=== PATIENT | female | born 1960 | race Caucasian/White ===

== ENCOUNTER → 2016-11-19 | Outpatient (CLI) | payer OTHER ==
[2014-04-26 12:55] VITALS: BP 136/83
[~2016-11-19] MED LIST: ACET325T9 PO; AMIT150T PO; ANAS1TAB3 PO; CRESTOR20 MG PO; CYCL10TA2 PO; DEXA4TAB PO; DIAZ5TAB PO; FLUO25PO MC; FLUO40CA9 PO; FURO-69 PO; GABA-586 PO; HYDR-2680 PO; HYDR25CA PO; LISI1TAB7 PO; METO50TA2 PO; NAPR500T3 PO; OMEP20CA5 PO; ONDA4TAB7 PO; PIRO20CA PO; TAMO20TA PO; TRAM50TA PO
--- NOTE | 2016-11-19 14:53 | KCIC ---
BONE DENSITOMETRY SCAN, 11/19/2016: History: Postmenopausal evaluation The lumbar spine and left hip were examined utilizing a DEXA technique. The bone mineral density in the lumbar spine as measured from the L1 through L4 levels is 0.93 grams per square centimeter. This yields a T-score of -1.1 compatible with osteoporosis. The findings have worsened since 11/15/2014 at which time the lumbar spine T-score was -0.6. The total T-score at the left hip is currently -1.6. On the previous study the left hip T-score was -1.3. IMPRESSION: Osteoporosis with interval worsening since 11/15/2014. Electronically signed by: Yordan Al MD (Nov 19, 2016 14:51:59)
== END | disposition home or self-care (01) ==
LOC: KCIC DEXA 11:09
PROVIDERS: ATTEND Internal Medicine Hematology & Oncology
DX: C50.919 Malignant neoplasm of unspecified site of unspecified female breast (principal); Z78.0 Asymptomatic menopausal state; Z82.62 Family history of osteoporosis
CPT/HCPCS: 77080

== ENCOUNTER → 2017-06-07 | Outpatient (CLI) | payer OTHER ==
[2014-04-26 12:55] VITALS: BP 136/83
[~2017-06-07] MED LIST changes: +ALEN70TA3 PO; -NAPR500T3 PO; +NAPR500T4 PO
--- NOTE | 2017-06-07 15:51 | RAD ---
Indication pain and swelling mid right humerus AP and lateral views of the right humerus were obtained. No bony abnormality is seen
--- NOTE | 2017-06-07 15:55 | RAD ---
Exam performed: Right upper extremity venous Doppler. Indication:RT ARM PAIN Date of Service: 06/07/2017 5:30 PM. Comparison:None available. Discussion: Multiple longitudinal and transverse high resolution real-time images of the venous system of the right upper extremity were obtained with color and Doppler sampling. The jugular, subclavian, axillary, brachial, cephalic, basilic, radial and ulnar veins are all patent and demonstrate normal flow and, where appropriate, compressibility. Left subclavian vein is patent. Impression: Normal color duplex ultrasound of the venous system of the right upper extremity.
== END | disposition home or self-care (01) ==
LOC: US 14:38
PROVIDERS: ATTEND Nurse Practitioner Adult Health
DX: M79.601 Pain in right arm (principal)
CPT/HCPCS: 73060; 93971

== ENCOUNTER → 2017-06-15 | Outpatient (CLI) | payer OTHER ==
[2014-04-26 12:55] VITALS: BP 136/83
[~2017-06-15] MED LIST changes: +GADOBUTROL 7.5 MMOL/7.5 ML VIAL IV ONE
--- NOTE | 2017-06-15 11:08 | RAD ---
MR of the right shoulder with and without contrast. Indication: Right shoulder pain with swelling over the last 2 months. Breast cancer. Technique: Standard multiplanar sequences are obtained before and after intravenous contrast. Findings: Acromioclavicular joint: Mildly degenerative. Rotator cuff: Tendinosis signal. No measurable supraspinatus or infraspinatus tendon tear. Partial subscapularis tendon tear. No significant subdeltoid bursal fluid. Glenohumeral cartilage: No acute defect or advanced DJD. Fluid: No significant joint effusion. Labrum: Tear of the superior labrum. Tear extends through the posterior labrum. Biceps tendon: Intact Bones: Small bone lesion at the upper aspect of the coracoid process, measures 7 mm diameter. No overtly aggressive bone destruction or acute macro fracture is identified. Soft tissue: Intramuscular edema within the supraspinatus, trapezius and posterior deltoid muscle. There is also extensive soft tissue edema and enhancement around the right shoulder greatest superiorly, and extending medially to the neck. No discrete soft tissue mass. Impression: 1. Rotator cuff tendinosis with a partial subscapularis tendon tear. 2. Superior and posterior labral tear. 3. Extensive soft tissue and intramuscular edema and enhancement in the visualized region. Findings are nonspecific, could be due to infectious, inflammatory or posttraumatic process. A discrete mass is not identified in the [id number]. This abnormality extends medially towards the neck, and is not fully visualized. Therefore, dedicated MR inclusive of the neck could be of benefit for further evaluation. 3. Small bone lesion at the base of the coracoid process of uncertain significance, but a small metastatic tumor deposit is possible. Consider whole body bone scan. Electronically signed by: Ej Ravi MD (06/15/2017 11:05 AM) [facility]
== END | disposition home or self-care (01) ==
LOC: MRI 08:29
PROVIDERS: ATTEND Internal Medicine Hematology & Oncology
DX: S46.011A Strain of muscle(s) and tendon(s) of the rotator cuff of right shoulder, initial encounter (principal); C50.919 Malignant neoplasm of unspecified site of unspecified female breast; X58.XXXA Exposure to other specified factors, initial encounter; Y93.89 Activity, other specified; Y92.89 Other specified places as the place of occurrence of the external cause; Y99.8 Other external cause status
CPT/HCPCS: 73223; A9585

== ENCOUNTER → 2017-07-08 | Outpatient (CLI) | payer OTHER ==
[2014-04-26 12:55] VITALS: BP 136/83
[~2017-07-08] MED LIST changes: +ATORVASTATIN CA80 MG PO; +BUPR150T8 PO; +CITA40TA5 PO; +LISI10TA2 PO; +OXYC-323 PO; +OXYC-328 PO; +ZOLP5TAB5 PO
--- NOTE | 2017-07-08 10:35 | RAD ---
EXAM: Brain MRI with and without contrast. HISTORY: Breast cancer and lung cancer. TECHNIQUE: Multiplanar, multisequence magnetic resonance imaging of the brain was performed prior to and following the administration of 7 cc Gadavist intravenous contrast. COMPARISON: 12/06/2014. FINDINGS: There is no restricted diffusion to suggest acute or subacute infarction. There is no susceptibility effect to suggest hemorrhage. There is no mass effect or midline shift. There is no hydrocephalus. No suspicious enhancing lesion is seen. There are few tiny foci of T2/FLAIR hyperintensity within the cerebral white matter, a nonspecific finding. The orbits, paranasal sinuses and mastoid air cells are unremarkable. There are normal flow voids within the cerebral vessels. IMPRESSION: 1. No acute intracranial finding or evidence of intracranial metastatic disease. 2. Few tiny foci of signal change within the cerebral white matter, a nonspecific finding most commonly due to chronic small vessel disease. Electronically signed by: Lexus Mooney MD (07/08/2017 10:31 AM) [id number]
== END | disposition home or self-care (01) ==
LOC: MRI 08:04
PROVIDERS: ATTEND Internal Medicine Hematology & Oncology
DX: C50.919 Malignant neoplasm of unspecified site of unspecified female breast (principal); C34.90 Malignant neoplasm of unspecified part of unspecified bronchus or lung; I73.89 Other specified peripheral vascular diseases
CPT/HCPCS: 70553; A9585

== ENCOUNTER → 2017-07-18 | Outpatient (CLI) | payer OTHER ==
[2014-04-26 12:55] VITALS: BP 136/83
[~2017-07-18] MED LIST changes: -GADOBUTROL 7.5 MMOL/7.5 ML VIAL IV ONE
--- NOTE | 2017-07-18 10:04 | CARD ---
APPROVED REPORT EXAM: Two-dimensional and M-mode echocardiogram with Doppler and color Doppler. Other Information Quality : Average Rhythm : NSR INDICATION LV Function:Systolic Reocurrent breast cancer 2D DIMENSIONS RVDd2.5 (2.9-3.5cm)Left Atrium(2D)2.3 (1.6-4.0cm) IVSd0.6 (0.7-1.1cm)Aortic Root(2D)2.5 (2.0-3.7cm) LVDd4.9 (3.9-5.9cm)LVOT Diameter1.9 (1.8-2.4cm) PWd0.5 (0.7-1.1cm)LVDs3.4 (2.5-4.0cm) FS (%) 30.9 %SV64.6 ml LVEF(%)58.4 (>50%) Aortic Valve AoV Peak Ayden.119.3cm/sAoV VTI20.3cm AO Peak GR.5.7mmHgLVOT Peak Ayden.119.7cm/s LVOT VTI 18.76cmAO Mean GR.4mmHg LIGIA (VMAX)2.51oh4OHD (VTI)2.53cm2 Mitral Valve MV E Outvotcl33.2cm/sMV DECEL [id number] MV A Ppamqzrh49.3cm/sMV E Mean Gr.2mmHg MV JUX43vgG/A Ratio0.9 MV A Zsjvsovb57ffOAL (PHT)3.16cm2 TDI E/Lateral E'5.2E/Medial E'7.3 Pulmonary Valve PV Peak Fjditjef681.9cm/sPV Peak Grad.6mmHg RVOT VTI18.1cm Tricuspid Valve TR P. Vgrfmovk231fi/sRAP DZTEGKXV3iyGz TR Peak Gr.50fdUmWGSE35hhGn LEFT VENTRICLE The left ventricle is normal size. There is normal left ventricular wall thickness. Left ventricle sy stolic function is normal. The Ejection Fraction is 55-60%. GLS Avg -18.17% There is normal LV segmen thi wall motion. The left ventricular diastolic function and filling is normal for age. There is no v entricular septal defect visualized. RIGHT VENTRICLE The right ventricle is normal size. The right ventricular systolic function is normal. ATRIA The left atrium size is normal. The right atrium size is normal. The interatrial septum is intact wit h no evidence for an atrial septal defect or patent foramen ovale as noted on 2-D or Doppler imaging. AORTIC VALVE The aortic valve is normal in structure and function. The aortic valve is trileaflet. Doppler and Col or Flow revealed no significant aortic regurgitation. There is no significant aortic valvular stenosi s. MITRAL VALVE The mitral valve leaflets are thickened. There is no mitral valve stenosis. Doppler and Color Flow re vealed no mitral valve regurgitation noted. TRICUSPID VALVE The tricuspid valve is normal in structure and function. Doppler and Color Flow revealed trace tricus pid regurgitation. The PA pressure was estimated at 24 mmHg. There is no tricuspid valve stenosis. PULMONIC VALVE The pulmonic valve is not well visualized. Doppler and Color Flow revealed no pulmonic valvular regur gitation. There is no pulmonic valvular stenosis. GREAT VESSELS The aortic root is normal in size. Pulmonary veins not well visualized. The IVC is normal in size and collapses >50% with inspiration. PERICARDIAL EFFUSION There is no evidence of significant pericardial effusion. Critical Notification Critical Value: No <Conclusion> Left ventricle systolic function is normal. The Ejection Fraction is 55-60%. Doppler and Color Flow revealed trace tricuspid regurgitation. The PA pressure was estimated at 24 mmHg. There is no evidence of significant pericardial effusion.
== END | disposition home or self-care (01) ==
LOC: ECHO 08:01
PROVIDERS: ATTEND Internal Medicine Hematology & Oncology
DX: C50.911 Malignant neoplasm of unspecified site of right female breast (principal); Z17.0 Estrogen receptor positive status [ER+]
CPT/HCPCS: 93306

== ENCOUNTER → 2017-07-25 | Outpatient (CLI) | payer OTHER ==
[2014-04-26 12:55] VITALS: BP 136/83
[~2017-07-25] MED LIST changes: +CEPH-264 PO; +DEXAMETHASONE SOD PHOS 20 MG/5 ML VIAL. ONE; +GABA300C8 PO; +GEMC200V IV; +HYDR-971 PO; +HYDR12.53 PO; +IOHEXOL 240 MG/ML 50ML VIAL. PO ONE; +IOHEXOL 300 MG/ML 100ML VIAL. IV ONE; +LIDO30CR TP; +LIDOCAINE 2% PF Vial for OR 5 ML VIAL. ONE; +LISI-375 PO; -METO50TA2 PO; +METO50TA6 PO; +MIDAZOLAM HCL/PF 2 MG/2 ML VIAL. ONE; +ONDANSETRON PF 4 MG/2 ML VIAL. ONE; +PROM12.553 RC; +PROPOFOL 20 ML IV ONE; +SEVOFLURANE 31 TO 60 MINUTES. IH ONE; +TRAS150V IV; +fentaNYL PF VIAL 100 MCG/2 ML VIAL ONE
--- NOTE | 2017-07-25 15:52 | RAD ---
CT abdomen and pelvis with contrast Indication: History of breast cancer. Technique: CT abdomen and pelvis with 60 mL of Omnipaque 300 and 50 mL of Omnipaque 240 by mouth contrast Comparison: Previous abdominal study from [address] chest from 06/27/2017 Findings: Heart is normal in size. No pericardial or pleural effusion. Numerous pulmonary nodules are seen in the lungs compatible with metastatic disease. Index lesions as follows: The dominant lesion in the right lower lobe measures 2.1 x 2.4 cm, previously 1.9 x 2.3 cm. The dominant lesion within left lower lobe measures 1.9 x 1.4 cm, previously 1.8 x 1.4 cm. Interval increase in the size of right infrahilar soft tissue mass measuring 2.8 x 2.9 cm, previously 2.1 x 2.9 cm. Interval increase in the size of lingular nodule measuring 2.8 x 1.8 cm, previously 2.5 x 1.6 cm. Liver is normal in morphology without focal hepatic lesion. Spleen within normal limits. No radiopaque gallstones. No pericholecystic fluid or gallbladder wall thickening. Pancreas is within normal limits. No adrenal masses. Interval decrease in the size of previously seen left renal cyst. No suspicious renal lesion or hydronephrosis. No retroperitoneal or pelvic adenopathy. No bowel obstruction. Normal bowel thickening or enhancement. Uterus is anteverted. 2.2 x 3.4 cm well-circumscribed soft tissue mass is seen in the right adnexa adjacent to the uterus, previously measuring 2.9 x 2.3 cm from study from 12/07/2013 most likely pedunculated fibroid. Bilateral ovaries are visualized and are within normal limits. No free pelvic fluid. Bladder within normal limits. No abdominal adenopathy. No suspicious bony lesion. Impression: 1. Interval increase in the size of lung bases nodules when compared to previous CT from 05/3017. 2. No metastatic disease in the abdomen or pelvis. PQRS Compliance Statement: One or more of the following individualized dose reduction techniques were utilized for this examination: 1. Automated exposure control 2. Adjustment of the mA and/or kV according to patient size 3. Use of iterative reconstruction technique
== END | disposition home or self-care (01) ==
LOC: CT 13:41
PROVIDERS: ATTEND Internal Medicine Hematology & Oncology
DX: C50.919 Malignant neoplasm of unspecified site of unspecified female breast (principal)
CPT/HCPCS: 74177; Q9966; Q9967; J1100; J2250; J2405; J2704; J3010; J2001

== ENCOUNTER 2017-07-26 10:27 | Day surgery (SDC) | payer OTHER ==
[~2017-07-26 10:27] MED LIST changes: -ACET325T9 PO; -ALEN70TA3 PO; -AMIT150T PO; -ANAS1TAB3 PO; -ATORVASTATIN CA80 MG PO; -BUPR150T8 PO; -CEPH-264 PO; -CITA40TA5 PO; -CRESTOR20 MG PO; -CYCL10TA2 PO; -DEXA4TAB PO; -DEXAMETHASONE SOD PHOS 20 MG/5 ML VIAL. ONE; -DIAZ5TAB PO; -FLUO25PO MC; -FLUO40CA9 PO; -FURO-69 PO; -GABA-586 PO; -GABA300C8 PO; -GEMC200V IV; -HYDR-2680 PO; -HYDR-971 PO; -HYDR12.53 PO; -HYDR25CA PO; +HYDROmorphone 2 MG/ML VIAL IV; -IOHEXOL 240 MG/ML 50ML VIAL. PO ONE; -IOHEXOL 300 MG/ML 100ML VIAL. IV ONE; -LIDO30CR TP; +LIDOCAINE 1% PF 2 ML VIAL. ID; -LIDOCAINE 2% PF Vial for OR 5 ML VIAL. ONE; -LISI-375 PO; -LISI10TA2 PO; -LISI1TAB7 PO; -METO50TA6 PO; -MIDAZOLAM HCL/PF 2 MG/2 ML VIAL. ONE; +MORPHINE SULFATE 2 MG/ML DISP.SYRIN. IV; -NAPR500T4 PO; -OMEP20CA5 PO; -ONDA4TAB7 PO; +ONDANSETRON PF 4 MG/2 ML VIAL. IV; -ONDANSETRON PF 4 MG/2 ML VIAL. ONE; -OXYC-323 PO; -OXYC-328 PO; -PIRO20CA PO; +PROCHLORPERAZINE 10 MG/2 ML VIAL. IV; -PROM12.553 RC; -PROPOFOL 20 ML IV ONE; -SEVOFLURANE 31 TO 60 MINUTES. IH ONE; -TAMO20TA PO; -TRAM50TA PO; -TRAS150V IV; -ZOLP5TAB5 PO; +fentaNYL PF VIAL 100 MCG/2 ML VIAL IV; -fentaNYL PF VIAL 100 MCG/2 ML VIAL ONE
[2017-07-26] MEDS: IV RINGERS,LACTATED 1000ML 1,000 ML IV (11:14)
[2017-07-26] MEDS: HEPARIN SODIUM 5,000 UNIT in IV NORMAL SALINE 500ML BAG 500 ML IRR (12:35)
[2017-07-26] MEDS: LIDOCAINE 1% 20 ML VIAL. (12:35)
[2017-07-26] MEDS: HYDROcodone/APAP 5/325MG 1 TAB TABLET PO (13:53)
== END 2017-07-26 14:29 | disposition home or self-care (01) ==
LOC: SURG 10:27
DX: C50.919 Malignant neoplasm of unspecified site of unspecified female breast (principal); E78.00 Pure hypercholesterolemia, unspecified; I10 Essential (primary) hypertension; M19.90 Unspecified osteoarthritis, unspecified site; F32.9 Major depressive disorder, single episode, unspecified; F41.9 Anxiety disorder, unspecified; F17.200 Nicotine dependence, unspecified, uncomplicated; Z85.3 Personal history of malignant neoplasm of breast; Z90.10 Acquired absence of unspecified breast and nipple
CPT/HCPCS: 36556; 36561; 71010; 77001; C1788; J0690; J1644; J7040

== ENCOUNTER → 2017-08-02 | Outpatient (CLI) | payer OTHER ==
[2017-07-26 13:55] VITALS: BP 117/70
[~2017-08-02] MED LIST changes: +ACET325T9 PO; +ALEN70TA3 PO; +AMIT150T PO; +ANAS1TAB3 PO; +ATORVASTATIN CA80 MG PO; +BUPR150T8 PO; +CEPH-264 PO; +CITA40TA5 PO; +CRESTOR20 MG PO; +CYCL10TA2 PO; +DEXA4TAB PO; +DIAZ5TAB PO; +FLUO25PO MC; +FLUO40CA9 PO; +FURO-69 PO; +GABA-586 PO; +GEMC200V IV; +HYDR-2680 PO; +HYDR-971 PO; +HYDR12.53 PO; +HYDR25CA PO; -HYDROmorphone 2 MG/ML VIAL IV; +LIDO30CR TP; -LIDOCAINE 1% PF 2 ML VIAL. ID; +LISI-375 PO; +LISI10TA2 PO; +LISI1TAB7 PO; +METO50TA6 PO; -MORPHINE SULFATE 2 MG/ML DISP.SYRIN. IV; +NAPR500T4 PO; +OMEP20CA5 PO; +ONDA4TAB7 PO; -ONDANSETRON PF 4 MG/2 ML VIAL. IV; +OXYC-323 PO; +OXYC-328 PO; +PIRO20CA PO; -PROCHLORPERAZINE 10 MG/2 ML VIAL. IV; +PROM12.553 RC; +TAMO20TA PO; +TRAM50TA PO; +TRAS150V IV; +ZOLP5TAB5 PO; -fentaNYL PF VIAL 100 MCG/2 ML VIAL IV
--- NOTE | 2017-08-02 12:02 | RAD ---
Indication: Axillary swelling. Time of exam 11:49 AM Comparison is made with prior chest from 07/18/2017. Left IJ Port-A-Cath remains in place with tip overlying the SVC. Numerous parenchymal nodules are identified bilaterally consistent with pulmonary metastatic disease. These may be slightly increased in size. No effusion is seen. There is no pneumothorax. The heart size is stable. Impression: Pulmonary metastatic disease, similar to slightly increased when compared exam from 07/26/2017.
--- NOTE | 2017-08-02 12:03 | RAD ---
Indication: Right arm swelling. Grayscale, color-flow and duplex Doppler evaluation of the right upper extremity deep venous system was performed. The right internal jugular vein as well as the right subclavian and axillary veins are patent. The brachial vein is patent. The basilic, cephalic, radial and ulnar veins are patent. No thrombus is seen. No fluid collection is identified. Impression: No evidence of right upper extremity DVT.
== END | disposition home or self-care (01) ==
LOC: US 11:24
PROVIDERS: ATTEND Internal Medicine Hematology & Oncology
DX: C78.00 Secondary malignant neoplasm of unspecified lung (principal); M79.89 Other specified soft tissue disorders
CPT/HCPCS: 71020; 93971

== ENCOUNTER → 2017-10-20 | Outpatient (CLI) | payer OTHER | END | disposition home or self-care (01) | LOC: ECHO 08:31 | DX: C50.911 Malignant neoplasm of unspecified site of right female breast (principal); Z17.0 Estrogen receptor positive status [ER+] | CPT/HCPCS: 93308 ==

== ENCOUNTER → 2017-11-15 | Outpatient (CLI) | payer OTHER ==
[2017-11-15] MEDS: IOHEXOL 240 MG/ML 50ML VIAL. PO ×2 (09:15→10:43)
[2017-11-15] MEDS: IOHEXOL 300 MG/ML 100ML VIAL. IV ×2 (09:30→10:42)
[2017-11-15] MEDS: HEPARIN PF 500 UNIT/5 ML DISP.SYRIN. IV (10:44)
== END | disposition home or self-care (01) ==
LOC: CT 09:05
DX: C50.911 Malignant neoplasm of unspecified site of right female breast (principal); J18.1 Lobar pneumonia, unspecified organism; J90 Pleural effusion, not elsewhere classified; Z17.0 Estrogen receptor positive status [ER+]
CPT/HCPCS: 71260; 74177; Q9966; Q9967

== ENCOUNTER 2017-11-30 12:24 | Inpatient (IN) | payer OTHER ==
[2017-11-30] MEDS ORDERED: 0.9 % SODIUM CHLORIDE 10 ML DISP.SYRIN. IV (13:00)
[2017-11-30] MEDS ORDERED: ONDANSETRON PF 4 MG/2 ML VIAL. IV (13:15)
[2017-11-30] MEDS ORDERED: MORPHINE SULFATE 4 MG/ML DISP.SYRIN. IV (13:15)
[2017-11-30 13:35] LABS: BASO % 1 % (0-3); EOS # 0.1 x10^3/uL (0.0-0.7); EOS % 1 % (0-3); HEMATOCRIT 25.5 % (36.0-47.0); HEMOGLOBIN 8.3 g/dL (12.0-15.5); LYMPH # 0.5 x10^3/uL (1.0-4.8); LYMPH % 6 % (24-48); MEAN CORPUSCULAR HEMOGLOBIN 29 pg (25-35); MEAN CORPUSCULAR HGB CONC 33 g/dL (31-37); MEAN CORPUSCULAR VOLUME 90 fL (79-100); MONO # 0.1 x10^3/uL (0.0-1.1); MONO % 1 % (0-9); NEUT # 7.3 x10^3uL (1.8-7.7); NEUT % 92 % (31-73); PLATELET COUNT 312 x10^3/uL (140-400); RED BLOOD COUNT 2.84 x10^6/uL (3.50-5.40); RED CELL DISTRIBUTION WIDTH 19.2 % (11.5-14.5); WHITE BLOOD COUNT 7.9 x10^3/uL (4.0-11.0)
[2017-11-30 13:37] LABS: ADD MAN DIFF? YES
[2017-11-30] MEDS: PIPERACILLIN/TAZOBACTAM 4.5 GM in IV NORMAL SALINE 100ML 100 ML IV (13:38)
[2017-11-30] MEDS: MORPHINE SULFATE 4 MG/ML DISP.SYRIN. IV (13:38)
[2017-11-30] MEDS: IV NORMAL SALINE 1000ML BAG 1,000 ML IV ×3 (13:39→21:51)
[2017-11-30 13:49] LABS: ANION GAP 13 (6-14); BLOOD UREA NITROGEN 56 mg/dL (7-20); CALCIUM 8.7 mg/dL (8.5-10.1); CARBON DIOXIDE 22 mmol/L (21-32); CHLORIDE 99 mmol/L (98-107); CREATININE 2.1 mg/dL (0.6-1.0); GFR 24.2; GLUCOSE 119 mg/dL (70-99); POTASSIUM 3.8 mmol/L (3.5-5.1); SODIUM 134 mmol/L (136-145)
[2017-11-30 13:55] LABS: ALBUMIN 2.6 g/dL (3.4-5.0); ALK PHOS 118 U/L (46-116); ALT (SGPT) 20 U/L (14-59); AST (SGOT) 25 U/L (15-37); DIRECT BILIRUBIN 0.1 mg/dL (0.0-0.2); LIPASE 120 U/L (73-393); MAGNESIUM 1.8 mg/dL (1.8-2.4); TOTAL BILIRUBIN 0.3 mg/dL (0.2-1.0); TOTAL PROTEIN 7.2 g/dL (6.4-8.2)
[2017-11-30 13:57] LABS: TROPONINI < 0.017 ng/mL (0.000-0.055)
[2017-11-30 14:05] LABS: NT-PRO BNP 1195 pg/mL (0-124)
[2017-11-30 14:05] LABS: CKMB MASS < 0.5 ng/mL (0.0-3.6); CREATINE KINASE 42 U/L (26-192)
[2017-11-30 14:09] LABS: LACTIC ACID 1.2 mmol/L (0.4-2.0)
[2017-11-30] MEDS ORDERED: LIDOCAINE/PRILOCAINE TOPICAL CREAM 5GM TUBE. TP (16:15)
[2017-11-30] MEDS ORDERED: ZOLPIDEM 5 MG TABLET. PO (16:15)
[2017-11-30] MEDS ORDERED: CYCLOBENZAPRINE 10 MG TABLET. PO (16:15)
[2017-11-30 16:43] LABS: % LYMPHS 6 % (24-48); % MONOS 1 % (0-10); % SEGS 93 % (35-66)
[2017-11-30 16:44] LABS: PLT ESTIMATE ADEQUATE (ADEQUATE)
[2017-11-30] MEDS: GABAPENTIN 300 MG CAPSULE. PO (20:41)
[2017-11-30] MEDS: AMITRIPTYLINE HCL 50 MG TABLET PO (20:41)
[2017-11-30] MEDS: hydrOXYzine PAMOATE 25 MG CAPSULE PO (20:41)
[2017-11-30] MEDS: ATORVASTATIN CALCIUM 40 MG TABLET. PO (20:41)
[2017-11-30] MEDS: HYDROcodone/APAP 5/325MG 1 TAB TABLET PO (20:43)
[2017-12-01] MEDS: IV NORMAL SALINE 1000ML BAG 1,000 ML IV ×2 (05:19→14:03)
[2017-12-01 06:50] LABS: BILIRUBIN,URINE NEGATIVE (NEG); CLARITY,URINE CLEAR; COLOR,URINE YELLOW; GLUCOSE,URINE NEGATIVE (NEG); NITRITE,URINE NEGATIVE (NEG); PH,URINE 5.5; PROTEIN,URINE NEGATIVE (NEG-TRACE); UROBILINOGEN,URINE 0.2 mg/dL (0.2 mg/dL)
[2017-12-01 07:01] LABS: BACTERIA,URINE FEW /HPF (0-FEW); SQUAMOUS EPITHELIAL CELL,UR FEW /LPF
[2017-12-01] MEDS: PANTOPRAZOLE 40 MG TABLET.DR. PO (07:48)
[2017-12-01 09:13] LABS: ADD MAN DIFF? NO
[2017-12-01] MEDS: GABAPENTIN 300 MG CAPSULE. PO ×3 (09:13→21:00)
[2017-12-01] MEDS: LISINOPRIL 10 MG TABLET PO (09:13)
[2017-12-01] MEDS: CITALOPRAM 20 MG TABLET. PO (09:13)
[2017-12-01] MEDS: buPROPion SR 150 MG TABLET.SA PO (09:13)
[2017-12-01] MEDS: hydrOXYzine PAMOATE 25 MG CAPSULE PO ×3 (09:13→21:01)
[2017-12-01 09:21] LABS: BASO % 0 % (0-3); EOS # 0.2 x10^3/uL (0.0-0.7); EOS % 4 % (0-3); HEMATOCRIT 22.4 % (36.0-47.0); HEMOGLOBIN 7.1 g/dL (12.0-15.5); LYMPH # 0.5 x10^3/uL (1.0-4.8); LYMPH % 12 % (24-48); MEAN CORPUSCULAR HEMOGLOBIN 29 pg (25-35); MEAN CORPUSCULAR HGB CONC 32 g/dL (31-37); MEAN CORPUSCULAR VOLUME 90 fL (79-100); MONO # 0.2 x10^3/uL (0.0-1.1); MONO % 4 % (0-9); NEUT # 3.2 x10^3uL (1.8-7.7); NEUT % 80 % (31-73); PLATELET COUNT 252 x10^3/uL (140-400); RED BLOOD COUNT 2.49 x10^6/uL (3.50-5.40); RED CELL DISTRIBUTION WIDTH 18.5 % (11.5-14.5)
[2017-12-01 09:50] LABS: ALBUMIN 2.2 g/dL (3.4-5.0); ALBUMIN/GLOBULIN RATIO 0.5 (1.0-1.7); ALK PHOS 120 U/L (46-116); ALT (SGPT) 24 U/L (14-59); ANION GAP 10 (6-14); AST (SGOT) 36 U/L (15-37); BLOOD UREA NITROGEN 47 mg/dL (7-20); BUN/CREATININE RATIO 25 (6-20); CALCIUM 8.1 mg/dL (8.5-10.1); CARBON DIOXIDE 22 mmol/L (21-32); CHLORIDE 104 mmol/L (98-107); CREATININE 1.9 mg/dL (0.6-1.0); GFR 27.2; GLUCOSE 107 mg/dL (70-99); POTASSIUM 3.7 mmol/L (3.5-5.1); SODIUM 136 mmol/L (136-145); TOTAL BILIRUBIN 0.3 mg/dL (0.2-1.0); TOTAL PROTEIN 6.6 g/dL (6.4-8.2)
[2017-12-01] MEDS: HYDROcodone/APAP 5/325MG 1 TAB TABLET PO (10:16)
[2017-12-01] MEDS: ceFAZolin SODIUM IV Push 1 GM VIAL. IVP ×3 (10:16→21:29)
[2017-12-01] MEDS ORDERED: ceFAZolin SODIUM 1 GM in IV DEXTROSE 5% 50 ML IV (14:00)
[2017-12-01] MEDS: ATORVASTATIN CALCIUM 40 MG TABLET. PO (21:00)
[2017-12-01] MEDS: AMITRIPTYLINE HCL 50 MG TABLET PO (21:00)
[2017-12-02] MEDS: IV NORMAL SALINE 1000ML BAG 1,000 ML IV ×3 (00:26→19:33)
[2017-12-02] MEDS: HYDROcodone/APAP 5/325MG 1 TAB TABLET PO ×2 (02:37→14:26)
[2017-12-02 05:15] LABS: ADD MAN DIFF? NO
[2017-12-02 05:35] LABS: BASO % 1 % (0-3); EOS % 1 % (0-3); HEMATOCRIT 23.2 % (36.0-47.0); HEMOGLOBIN 7.6 g/dL (12.0-15.5); LYMPH # 0.4 x10^3/uL (1.0-4.8); LYMPH % 15 % (24-48); MEAN CORPUSCULAR HEMOGLOBIN 29 pg (25-35); MEAN CORPUSCULAR HGB CONC 33 g/dL (31-37); MEAN CORPUSCULAR VOLUME 89 fL (79-100); MONO # 0.3 x10^3/uL (0.0-1.1); MONO % 9 % (0-9); NEUT # 2.3 x10^3uL (1.8-7.7); NEUT % 75 % (31-73); PLATELET COUNT 220 x10^3/uL (140-400); RED CELL DISTRIBUTION WIDTH 19.2 % (11.5-14.5)
[2017-12-02] MEDS: ceFAZolin SODIUM IV Push 1 GM VIAL. IVP ×3 (05:45→22:00)
[2017-12-02 05:52] LABS: ALBUMIN 2.2 g/dL (3.4-5.0); ALBUMIN/GLOBULIN RATIO 0.5 (1.0-1.7); ALK PHOS 122 U/L (46-116); ALT (SGPT) 32 U/L (14-59); ANION GAP 12 (6-14); AST (SGOT) 45 U/L (15-37); BLOOD UREA NITROGEN 37 mg/dL (7-20); BUN/CREATININE RATIO 25 (6-20); CALCIUM 8.3 mg/dL (8.5-10.1); CARBON DIOXIDE 20 mmol/L (21-32); CHLORIDE 107 mmol/L (98-107); CREATININE 1.5 mg/dL (0.6-1.0); GFR 35.7; GLUCOSE 112 mg/dL (70-99); POTASSIUM 4.2 mmol/L (3.5-5.1); SODIUM 139 mmol/L (136-145); TOTAL BILIRUBIN 0.3 mg/dL (0.2-1.0); TOTAL PROTEIN 6.6 g/dL (6.4-8.2)
[2017-12-02] MEDS: buPROPion SR 150 MG TABLET.SA PO (08:20)
[2017-12-02] MEDS: CITALOPRAM 20 MG TABLET. PO (08:21)
[2017-12-02] MEDS: hydrOXYzine PAMOATE 25 MG CAPSULE PO ×3 (08:21→21:10)
[2017-12-02] MEDS: GABAPENTIN 300 MG CAPSULE. PO ×4 (08:21→21:10)
[2017-12-02] MEDS: PANTOPRAZOLE 40 MG TABLET.DR. PO (08:21)
[2017-12-02] MEDS: LISINOPRIL 10 MG TABLET PO (08:23)
[2017-12-02] MEDS ORDERED: oxyCODONE/APAP 5/325 1 TAB TABLET PO (09:30)
[2017-12-02] MEDS ORDERED: MORPHINE SULFATE 2 MG/ML DISP.SYRIN. IV (09:30)
[2017-12-02] MEDS: ONDANSETRON PF 4 MG/2 ML VIAL. IV ×2 (12:54→23:16)
[2017-12-02] MEDS: AMITRIPTYLINE HCL 50 MG TABLET PO (21:10)
[2017-12-02] MEDS: ATORVASTATIN CALCIUM 40 MG TABLET. PO (21:10)
[2017-12-02] MEDS: LABETALOL 20 MG/4 ML DISP.SYRIN. IVP (22:40)
[2017-12-02] MEDS: BENZOCAINE/MENTHOL LOZENGE. PO (23:16)
[2017-12-03] MEDS: IV NORMAL SALINE 1000ML BAG 1,000 ML IV (05:12)
[2017-12-03] MEDS: ceFAZolin SODIUM IV Push 1 GM VIAL. IVP (05:57)
[2017-12-03] MEDS: BENZOCAINE/MENTHOL LOZENGE. PO (06:03)
[2017-12-03 06:15] LABS: ANION GAP 9 (6-14); BLOOD UREA NITROGEN 25 mg/dL (7-20); CALCIUM 8.7 mg/dL (8.5-10.1); CARBON DIOXIDE 21 mmol/L (21-32); CHLORIDE 110 mmol/L (98-107); CREATININE 1.4 mg/dL (0.6-1.0); GFR 38.6; GLUCOSE 107 mg/dL (70-99); POTASSIUM 4.5 mmol/L (3.5-5.1); SODIUM 140 mmol/L (136-145)
[2017-12-03 07:09] LABS: SEDIMENTATION RATE 125 (0-25)
[2017-12-03] MEDS: PANTOPRAZOLE 40 MG TABLET.DR. PO (07:12)
[2017-12-03] MEDS: HYDROcodone/APAP 5/325MG 1 TAB TABLET PO (07:19)
[2017-12-03] MEDS: buPROPion SR 150 MG TABLET.SA PO (08:44)
[2017-12-03] MEDS: hydrOXYzine PAMOATE 25 MG CAPSULE PO (08:44)
[2017-12-03] MEDS: GABAPENTIN 300 MG CAPSULE. PO (08:44)
[2017-12-03] MEDS: LISINOPRIL 20 MG TABLET PO (08:44)
[2017-12-03] MEDS: CITALOPRAM 20 MG TABLET. PO (08:45)
[2017-12-03] MEDS ORDERED: GABAPENTIN 300 MG CAPSULE. PO (14:00)
== END 2017-12-03 12:00 | disposition home or self-care (01) | DRG 602 ==
LOC: ER 12:24 → 5 NORTH 13:12
DX: L03.113 Cellulitis of right upper limb (principal); N17.0 Acute kidney failure with tubular necrosis; E43 Unspecified severe protein-calorie malnutrition; C78.00 Secondary malignant neoplasm of unspecified lung; C50.911 Malignant neoplasm of unspecified site of right female breast; G62.9 Polyneuropathy, unspecified; E86.0 Dehydration; E78.5 Hyperlipidemia, unspecified; K21.9 Gastro-esophageal reflux disease without esophagitis; F32.9 Major depressive disorder, single episode, unspecified; I89.0 Lymphedema, not elsewhere classified; F17.210 Nicotine dependence, cigarettes, uncomplicated; I10 Essential (primary) hypertension; Z90.13 Acquired absence of bilateral breasts and nipples; Z92.21 Personal history of antineoplastic chemotherapy; Z79.899 Other long term (current) drug therapy; Z68.28 Body mass index [BMI] 28.0-28.9, adult
CPT/HCPCS: 36415; 71045; 80048; 80053; 80076; 81001; 82553; 83605; 83690; 83735; 83880; 84443; 84484; 85007; 85025; 85651; 87040; 87086; 93005; 93971; 96365; 96375; 99285; 99285-25; J0690; J2060; J2270; J2405; J2543; J3490; J7030; Q0177

== ENCOUNTER → 2018-03-02 | Outpatient (CLI) | payer OTHER | END | disposition home or self-care (01) | LOC: ECHO 10:53 | DX: C50.911 Malignant neoplasm of unspecified site of right female breast (principal); I13.0 Hypertensive heart and chronic kidney disease with heart failure and stage 1 through stage 4 chronic kidney disease, or unspecified chronic kidney disease; I50.9 Heart failure, unspecified; N18.3 Chronic kidney disease, stage 3 (moderate); E78.5 Hyperlipidemia, unspecified; E78.00 Pure hypercholesterolemia, unspecified; J44.9 Chronic obstructive pulmonary disease, unspecified; Z17.0 Estrogen receptor positive status [ER+] | CPT/HCPCS: 93306 ==

== ENCOUNTER → 2018-03-08 | Outpatient (CLI) | payer OTHER ==
[~2018-03-08] MED LIST changes: -ACET325T9 PO; -ALEN70TA3 PO; -AMIT150T PO; -ANAS1TAB3 PO; -ATORVASTATIN CA80 MG PO; -BUPR150T8 PO; -CEPH-264 PO; -CITA40TA5 PO; +CONTRAST GIVEN. MC; -CRESTOR20 MG PO; -CYCL10TA2 PO; -DEXA4TAB PO; -DIAZ5TAB PO; -FLUO25PO MC; -FLUO40CA9 PO; -FURO-69 PO; -GABA-586 PO; -GEMC200V IV; +HEPARIN PF 500 UNIT/5 ML DISP.SYRIN. IV; -HYDR-2680 PO; -HYDR-971 PO; -HYDR12.53 PO; -HYDR25CA PO; -LIDO30CR TP; -LISI-375 PO; -LISI10TA2 PO; -LISI1TAB7 PO; -METO50TA6 PO; -NAPR500T4 PO; -OMEP20CA5 PO; -ONDA4TAB7 PO; -OXYC-323 PO; -OXYC-328 PO; -PIRO20CA PO; -PROM12.553 RC; -TAMO20TA PO; -TRAM50TA PO; -TRAS150V IV; -ZOLP5TAB5 PO
[2018-03-08] MEDS: IOHEXOL 240 MG/ML 50ML VIAL. PO (10:15)
[2018-03-08] MEDS: HEPARIN PF 500 UNIT/5 ML DISP.SYRIN. IV (10:15)
== END | disposition home or self-care (01) ==
LOC: NM 10:12
DX: C50.411 Malignant neoplasm of upper-outer quadrant of right female breast (principal); C78.00 Secondary malignant neoplasm of unspecified lung; D64.81 Anemia due to antineoplastic chemotherapy; I13.0 Hypertensive heart and chronic kidney disease with heart failure and stage 1 through stage 4 chronic kidney disease, or unspecified chronic kidney disease; I50.9 Heart failure, unspecified; N18.3 Chronic kidney disease, stage 3 (moderate); E78.5 Hyperlipidemia, unspecified
CPT/HCPCS: 71250; 74176; 78306; 96374; A9503; Q9966

== ENCOUNTER → 2018-06-09 | Outpatient (CLI) | payer OTHER ==
[2017-12-29 11:28] VITALS: BP 144/80
[~2018-06-09] MED LIST changes: +ACET325T9 PO; +ALEN70TA3 PO; +AMIT150T PO; +AMOX1TAB61 PO; +ANAS1TAB47 PO; +ATORVASTATIN CA80 MG PO; +BUPR150T8 PO; +CEPH-264 PO; +CITA40TA5 PO; -CONTRAST GIVEN. MC; +CRESTOR20 MG PO; +CYCL10TA2 PO; +DEXA4TAB PO; +DIAZ5TAB PO; +FLUO25PO MC; +FLUO40CA9 PO; +FURO-69 PO; +FURO20TA3 PO; +GABA-586 PO; +GABA300C8 PO; +GEMC200V IV; -HEPARIN PF 500 UNIT/5 ML DISP.SYRIN. IV; +HYDR-2680 PO; +HYDR-2758 PO; +HYDR-971 PO; +HYDR12.53 PO; +HYDR25CA PO; +HYDR25CA75 PO; +LIDO30CR TP; +LIDO700A39 TD; +LISI-375 PO; +LISI10TA2 PO; +LISI1TAB7 PO; +METO-239 PO; +METO25TA4 PO; +METO50TA6 PO; +NAPR-514 PO; +OMEP20CA5 PO; +ONDA4TAB7 PO; +OXYC-323 PO; +OXYC-328 PO; +PIRO20CA PO; +PROM12.553 RC; +SENN-22 PO; +TAMO20TA PO; +TRAM50TA PO; +TRAS150V IV; +ZOLP5TAB5 PO
--- NOTE | 2018-06-09 12:07 | CARD ---
MR#: [id number] Date of Study: 06/09/2018 Ordering Physician: ZAN SCOTT, Referring Physician: Chase TREJO: Doreen Horne RDCS APPROVED REPORT EXAM: LIMITED Two-dimensional echocardiogram Other Information Quality : Average INDICATION LV Function:Systolic Chemotherapy 2D DIMENSIONS RVDd2.0 (2.9-3.5cm)Left Atrium(2D)2.7 (1.6-4.0cm) IVSd0.5 (0.7-1.1cm)LVDd6.3 (3.9-5.9cm) PWd0.7 (0.7-1.1cm)LVDs4.8 (2.5-4.0cm) FS (%) 23.7 %SV93.7 ml LEFT VENTRICLE Limited ECHO. LV chamber size approaching the upper limit of normal. There is normal left ventricular wall thickness. Left ventricle systolic function is low normal. The Ejection Fraction is estmated at 50%. There is normal LV segmental wall motion. RIGHT VENTRICLE The right ventricle is normal size. The right ventricular systolic function is normal. ATRIA The left atrium size is normal. The right atrium size is normal. PERICARDIAL EFFUSION There is no evidence of significant pericardial effusion. Critical Notification Critical Value: No <Conclusion> Limited ECHO. LV chamber size approaching the upper limit of normal. Left ventricle systolic function is low normal. The Ejection Fraction is estmated at 50%. There is normal left ventricular wall thickness. There is normal LV segmental wall motion. Signed by : Leighton King MD Electronically Approved : 06/09/2018 12:06:40
== END | disposition home or self-care (01) ==
LOC: ECHO 08:26
PROVIDERS: ATTEND Internal Medicine Hematology & Oncology
DX: C50.911 Malignant neoplasm of unspecified site of right female breast (principal); E78.00 Pure hypercholesterolemia, unspecified; I10 Essential (primary) hypertension; M19.90 Unspecified osteoarthritis, unspecified site; F32.9 Major depressive disorder, single episode, unspecified; F41.9 Anxiety disorder, unspecified; F17.200 Nicotine dependence, unspecified, uncomplicated; Z17.0 Estrogen receptor positive status [ER+]; Z79.899 Other long term (current) drug therapy; Z85.3 Personal history of malignant neoplasm of breast
CPT/HCPCS: 93308

== ENCOUNTER → 2018-06-12 | Outpatient (CLI) | payer OTHER ==
[2017-12-29 11:28] VITALS: BP 144/80
[~2018-06-12] MED LIST changes: +CONTRAST GIVEN. MC PRN; +IOHEXOL 240 MG/ML 50ML VIAL. PO ONE
--- NOTE | 2018-06-12 10:37 | RAD ---
CT chest abdomen pelvis without contrast Indication: MALIGNANT NEOPLASM OF RIGHT BREAST. Technique: Noncontrast CT imaging was performed of the chest, abdomen, pelvis, multiplanar reconstruction images submitted. Oral contrast was given. One or more of the following individualized dose reduction techniques were utilized for this examination: 1. Automated exposure control 2. Adjustment of the mA and/or kV according to patient size 3. Use of iterative reconstruction technique. Comparison: March 08, 2018 Chest: FINDINGS: There are again bilateral pulmonary nodules although overall smaller. Dominant residual left upper lobe nodule axial image 20 series 2 measures 1.3 cm transverse by 1.2 cm AP by 1.2 cm CC versus previously 1.8 cm transverse by 1.6 m AP by 1.3 cm cc. Another dominant right middle lobe lesion measures about 1.1 cm transverse by 0.8 cm AP by about 1.1 cm CC versus previously 1.5 cm transverse by 1.3 cm AP by 1.3 cm cc. No new pulmonary nodularity is identified. There is left internal jugular port catheter. Thoracic aortic caliber is within normal limits. No new significant lymphadenopathy is identified. There is no pleural or pericardial effusion or pneumothorax. There is no new infiltrate. There again may be mild wall thickening of the esophagus to level of the sarwat. There is posterior fusion hardware of the visualized inferior cervical spine not fully included. There is now slightly displaced right lateral third rib fracture, possible nondisplaced right lateral second rib fracture. IMPRESSION: 1. Pulmonary nodularity has decreased, no new pulmonary nodularity or lymphadenopathy. 2. There is now slightly displaced right lateral third rib fracture, also possible nondisplaced right lateral second rib fracture. 3. There again may be mild wall thickening of the esophagus to the level of the sarwat, could be seen with esophagitis. Abdomen and pelvis: Findings: Accurate evaluation of the abdominal visceral organs is limited without intravenous contrast. There is no obvious new abnormality of the liver, spleen, pancreas. There is no adrenal nodularity. There is no renal calculus or hydronephrosis. Gallbladder is present without obvious intraluminal abnormality by CT. There is fairly prominent retained stool in segments of the colon. There is no small bowel dilatation, free air, free fluid. There is no new significant lymphadenopathy. There is again bilateral L5 spondylolysis, grade 1 anterior spondylolisthesis L5-S1. There is advanced degenerative disc disease L5-S1 and fairly severe bilateral L5-S1 neural foramina compromise. IMPRESSION: 1. There is no new evidence of metastatic disease to the abdomen or pelvis, limited evaluation of abdominal visceral organs without intravenous contrast. 2. There is again bilateral L5 spondylolysis, grade 1 anterior spondylolisthesis L5-S1, also advanced degenerative disc disease and fairly severe neural foramina compromise bilaterally at L5-S1. 3. There is prominent retained stool in segments of the colon. Electronically signed by: Naresh Ames MD (06/12/2018 10:34 AM) [id number]
--- NOTE | 2018-06-12 17:16 | RAD ---
Whole body bone scan Clinical indications: History of breast cancer. Right arm pain and swelling. COMPARISON: March 08, [address] dated June 12, 2018. TECHNIQUE: After IV infusion of 25 mCi of technetium 99m MDP, delayed anterior and posterior planar images of the whole body were performed. FINDINGS: Bilateral renal function is evident. Degenerative activity is seen involving both shoulders and sternoclavicular joints. There is a new finding of radiotracer activity involving the anterolateral aspect of the right sixth rib and the lateral aspect of the right second and third ribs.. There is degenerative activity seen involving the left knee and both feet. There is degenerative activity seen involving the lumbosacral junction more so on the right side. No abnormal uptake is seen. IMPRESSION: New focus of uptake involving the right second and third and sixth ribs consistent with rib fractures. Right second and third rib fractures are seen on the CT study performed today. No osseous metastatic disease is evident elsewhere. Electronically signed by: Chris Johnson MD (06/12/2018 5:13 PM) [facility]
== END | disposition home or self-care (01) ==
LOC: NM 08:09
PROVIDERS: ATTEND Internal Medicine Hematology & Oncology
DX: S22.41XA Multiple fractures of ribs, right side, initial encounter for closed fracture (principal); M51.37 Other intervertebral disc degeneration, lumbosacral region; M43.17 Spondylolisthesis, lumbosacral region; K59.00 Constipation, unspecified; Z85.3 Personal history of malignant neoplasm of breast; X58.XXXA Exposure to other specified factors, initial encounter; Y93.89 Activity, other specified; Y92.89 Other specified places as the place of occurrence of the external cause; Y99.8 Other external cause status
CPT/HCPCS: 71250; 74176; 78306; 96374; A9503; Q9966

== ENCOUNTER → 2018-09-01 | Outpatient (CLI) | payer MEDICAID, OTHER ==
[2017-12-29 11:28] VITALS: BP 144/80
[~2018-09-01] MED LIST changes: -GABA-586 PO; +GABA300C18 PO; -GABA300C8 PO; -HYDR-2758 PO; +HYDR-2761 PO; +HYDR-3164 PO; -HYDR-971 PO; -HYDR12.53 PO; +HYDR12.575 PO; +IOHEXOL 300 MG/ML 100ML VIAL. IV ONE; -OXYC-323 PO; -OXYC-328 PO; +OXYC1TAB15 PO; +OXYC1TAB22 PO
--- NOTE | 2018-09-01 11:35 | RAD ---
EXAM: CT Chest, Abdomen and Pelvis with IV contrast CLINICAL HISTORY: BREAST CA F/U COMPARISON: 11/15/2017, 06/12/2018, 03/08/2018 TECHNIQUE: Helical CT of the chest, abdomen and pelvis was performed following the administration of intravenous contrast. Oral contrast was administered. Axial, coronal and sagittal reformatted images were generated. ---PQRS compliance statement - One or more of the following individualized dose reduction techniques were utilized for this study: 1. Automated exposure control 2. Adjustment of the mA and/or kV according to patient size 3. Use of iterative reconstruction technique--- FINDINGS: Chest: The heart is not enlarged. No pericardial effusion. No pleural effusion or pneumothorax. There is no mediastinal or hilar lymphadenopathy by size criteria. There is diffuse fatty infiltration within the right axilla with associated calcifications in the right rotator cuff, grossly stable to prior CT 06/12/2018. Linear opacities in the bilateral lower lobes, lingula and middle lobe likely scarring/atelectasis. Several nodular opacities are seen bilaterally, in general grossly stable to borderline decrease in size. For example: 1. The left upper lobe lung nodule measures 1.5 x 0.9 cm, previously 1.3 x 1.2 cm. This is likely stable with differences in measurement likely based on technique. 2. A right middle lobe lung nodule measures 1.1 x 0.7 cm, previously 1.1 x 0.8 cm, stable. Left chest port tip terminates at the distal SVC. Abdomen and Pelvis: No focal liver lesion. Gallbladder is normal. No biliary ductal dilatation. 1.4 cm hypodense splenic lesion, stable to at least 11/15/2017 Adrenal glands are normal. Pancreas is unremarkable. Symmetric nephrograms. No focal renal lesion. No hydronephrosis or hydroureter. Moderate colonic stool content is seen. Oral contrast material is seen to the level of the distal small bowel. Appendix is not convincingly seen. No evidence for bowel obstruction. No abdominal or pelvic lymphadenopathy or ascites. Bones: Right second and third rib fractures are again seen, somewhat mottled in appearance. SI joint degenerative changes are seen. Bilateral L5 pars defects are seen with grade 1 anterolisthesis of L5 on S1. Lower cervical spine fusion hardware is partially profiled. IMPRESSION: 1. Bilateral lung nodules are grossly stable in size and appearance. 2. Right axillary soft tissue infiltration is seen adjacent to the right second and third rib fractures, possibly posttraumatic in etiology. Evaluation for right axillary lymphadenopathy is therefore rendered limited. 3. Otherwise, no thoracic, abdominal or pelvic lymphadenopathy Electronically signed by: James Carson MD (09/01/2018 11:31 AM) [facility]
--- NOTE | 2018-09-01 16:38 | RAD ---
Nuclear medicine whole body bone scan History: HX OF BREAST CA, WITH KNOWN METS. PT STATES SHE HAS FALLEN WITHIN THE LAST MONTH OR WITH PAIN IN HER RT RIB CAGE. SHE DIDN'T SPECIFY IF SHE HAD ANY KNOW RIB FX FROM HER FALL, JUST THAT IT WAS REALLY SORE Comparison: CT chest abdomen and pelvis with contrast, earlier same day. Body bone scan June 12, 2018. Technique: Examination performed after intravenous administration of 25.3 mCi Technetium 99m MDP. Images of the whole body were obtained in the anterior and posterior projections. Findings: Similar to prior study there is increased tracer uptake of the right second, third, and sixth ribs due to subacute fracture. There is new mild increased tracer uptake of the right fourth and fifth ribs, may be due to fracture. No correlate is seen on CT. There is increased tracer uptake of left lateral fifth rib subacute fracture. Increased tracer uptake about the shoulders is unchanged from prior study and is likely degenerative. Tracer uptake in the pelvis is symmetric. Unchanged nonspecific tracer uptake in the feet. Tracer uptake in the spine is mildly heterogeneous. Intense tracer in urine in the bladder obscures the lower sacrum and the symphysis pubis. Tracer distribution in the soft tissues appears normal. IMPRESSION: 1. No scintigraphic evidence of bone metastasis. 2. New mild increased tracer uptake in the right fourth and fifth ribs may be due to nondisplaced fractures. Electronically signed by: Mendoza Oliva MD (09/01/2018 4:34 PM) [facility]
== END | disposition home or self-care (01) ==
LOC: NM 08:19
PROVIDERS: ATTEND Internal Medicine Hematology & Oncology
DX: S22.41XA Multiple fractures of ribs, right side, initial encounter for closed fracture (principal); C50.911 Malignant neoplasm of unspecified site of right female breast; R92.8 Other abnormal and inconclusive findings on diagnostic imaging of breast; Z17.0 Estrogen receptor positive status [ER+]; Z87.891 Personal history of nicotine dependence; W19.XXXA Unspecified fall, initial encounter; Y93.89 Activity, other specified; Y92.89 Other specified places as the place of occurrence of the external cause; Y99.8 Other external cause status
CPT/HCPCS: 71260; 74177; 78306; 96374; A9503; Q9966; Q9967

== ENCOUNTER → 2018-09-12 | Outpatient (CLI) | payer OTHER ==
[2017-12-29 11:28] VITALS: BP 144/80
[~2018-09-12] MED LIST changes: -CONTRAST GIVEN. MC PRN; -IOHEXOL 240 MG/ML 50ML VIAL. PO ONE; -IOHEXOL 300 MG/ML 100ML VIAL. IV ONE; +LIDO700A21 TD; -LIDO700A39 TD
--- NOTE | 2018-09-12 14:43 | RAD ---
Right lower extremity venous duplex study 09/12/2018 2:33 PM Clinical History: History of breast cancer. Right upper extremity swelling. History of right mastectomy and lymph edema. History of cellulitis.Per technologist report the patient is currently anticoagulated Technique: Using a combination of real time ultrasound imaging and color-flow and pulse Doppler imaging techniques, including spectral analysis, graded compression and augmentation, duplex evaluation of the deep venous system of the right lower extremity was performed. Multiple images were obtained. Findings: Exam is positive for deep venous thrombosis involving the brachial veins. One of the brachial veins is completely thrombosed. The second right brachial vein appears to be partially thrombosed. The basilic vein is patent. Subclavian vein is patent. Axillary vein is not visualized secondary to inability of patient to elevate the arm.The right radial and ulnar veins appear to be patent. The right internal jugular vein appears to be patent. The cephalic vein appears to be patent. Impression: 1. Exam is positive for deep venous thrombosis. The patient has 2 Brachial veins. One is completely thrombosed, one is partially thrombosed. 2. Nonvisualization of the axillary vein as described Electronically signed by: Jay Allen MD (09/12/2018 2:38 PM) [id number]
== END | disposition home or self-care (01) ==
LOC: US 13:03
PROVIDERS: ATTEND Internal Medicine Hematology & Oncology
DX: I82.621 Acute embolism and thrombosis of deep veins of right upper extremity (principal); Z85.3 Personal history of malignant neoplasm of breast; Z90.11 Acquired absence of right breast and nipple
CPT/HCPCS: 93971

== ENCOUNTER → 2018-09-21 | Outpatient (CLI) | payer OTHER ==
[2017-12-29 11:28] VITALS: BP 144/80
[~2018-09-21] MED LIST changes: -LIDO700A21 TD; +LIDO700A39 TD
--- NOTE | 2018-09-21 15:49 | CARD ---
MR#: [id number] Date of Study: 09/21/2018 Ordering Physician: ZAN SCOTT, Referring Physician: ZAN SCOTT, Tech: Cami Cook APPROVED REPORT EXAM: Two-dimensional and M-mode echocardiogram with Doppler and color Doppler. Other Information Quality : GoodHR: 75bpm INDICATION Breast Cancer RISK FACTORS Hypertension Hyperlipidemia Smoking 2D DIMENSIONS RVDd2.3 (2.9-3.5cm)Left Atrium(2D)2.8 (1.6-4.0cm) IVSd0.7 (0.7-1.1cm)Aortic Root(2D)2.4 (2.0-3.7cm) LVDd5.2 (3.9-5.9cm)LVOT Diameter2.0 (1.8-2.4cm) PWd0.7 (0.7-1.1cm)LVDs3.5 (2.5-4.0cm) FS (%) 33.4 %SV80.7 ml LVEF(%)61.7 (>50%) LEFT VENTRICLE The left ventricle is normal size. There is normal left ventricular wall thickness. The left ventricu lar systolic function is low normal. EF 50-55% There is normal LV segmental wall motion. RIGHT VENTRICLE The right ventricle is normal size. There is normal right ventricular wall thickness. The right ventr icular systolic function is normal. ATRIA The left atrium size is normal. The right atrium size is normal. The interatrial septum is intact wit h no evidence for an atrial septal defect or patent foramen ovale as noted on 2-D or Doppler imaging. AORTIC VALVE The aortic valve is normal in structure and function. Doppler and Color Flow revealed no significant aortic regurgitation. There is no significant aortic valvular stenosis. PULMONIC VALVE The pulmonic valve is not visualized. GREAT VESSELS The aortic root is normal in size. The IVC is normal in size and collapses >50% with inspiration. PERICARDIAL EFFUSION There is no evidence of significant pericardial effusion. Critical Notification Critical Value: No <Conclusion> The left ventricular systolic function is low normal. EF 50-55% There is normal LV segmental wall motion. Low normal Global Strain values. Signed by : Lan Cano, Electronically Approved : 09/21/2018 15:47:16
== END | disposition home or self-care (01) ==
LOC: ECHO 13:42
PROVIDERS: ATTEND Internal Medicine Hematology & Oncology
DX: I10 Essential (primary) hypertension (principal); E78.5 Hyperlipidemia, unspecified; F17.200 Nicotine dependence, unspecified, uncomplicated; Z85.3 Personal history of malignant neoplasm of breast
CPT/HCPCS: 93308

== ENCOUNTER → 2018-12-01 | Outpatient (CLI) | payer OTHER ==
[2017-12-29 11:28] VITALS: BP 144/80
[~2018-12-01] MED LIST changes: +CONTRAST GIVEN. MC PRN; +IOHEXOL 240 MG/ML 50ML VIAL. PO ONE; +IOHEXOL 300 MG/ML 100ML VIAL. IV ONE
--- NOTE | 2018-12-01 13:55 | RAD ---
CT CHEST ABD PELVIS W/CONTRAST Indication: Breast cancer Technique: Postcontrast CT imaging was performed of the chest, abdomen, pelvis, multiplanar reconstruction images submitted. Oral contrast was also given. One or more of the following individualized dose reduction techniques were utilized for this examination: 1. Automated exposure control 2. Adjustment of the mA and/or kV according to patient size 3. Use of iterative reconstruction technique. Comparison: September 01, 2018; June 12, 2018 CHEST: Findings: There are multifocal areas of parenchymal density of the bilateral hemithoraces as seen previously. Findings are overall similar to May 2018 exam. Some foci again have a somewhat nodular morphology and others with linear/reticular morphology. More defined left lower lobe nodule image 40 series 2 about 0.7 cm is unchanged. Left upper lobe nodular density axial image 24 about 1.4 cm is similar. No new discrete pulmonary nodularity is identified. There is no new pericardial or pleural fluid, pneumothorax, lobar consolidation. No new significant chest lymphadenopathy is identified. There is again left internal jugular port catheter with tip in the superior vena cava. There is a similar degree of somewhat hazy density and skin thickening of the right chest wall. There is again more confluent density of the right axillary region and extending anterior to the right scapula with effacement of fat in this region asymmetric with the left, overall unchanged in appearance. There is again focus of mild ossification anterior to the right scapula within the area of asymmetric density, unchanged in appearance. There is old right lateral third rib fracture and nondisplaced right second rib fracture as seen previously, some heterogeneity of the right third and second ribs as seen previously. IMPRESSION: 1. Findings are stable, multifocal areas of parenchymal density of the bilateral hemithoraces similar to May 2018 exam, no new pulmonary nodularity or infiltrate or new significant lymphadenopathy. There is again asymmetric density of the right chest wall and right axillary region, residual mass in this region again possible although there may be component of edema. Residual mass would be better evaluated by PET CT to evaluate for metabolic activity. There are again old fractures of the right second and third ribs, also some heterogeneity of the right second and third ribs possibly related to component of post radiation change. Abdomen pelvis: Findings: There is again hypodense lesion of the spleen about 1 cm in size unchanged. No new abnormality is identified of the liver or pancreas. Gallbladder is present without obvious intraluminal abnormality by CT. There is no new adrenal nodularity. There is no new significant lymphadenopathy. Bowel is not dilated. There is variable retained stool in the colon. There is no free air or free fluid. There is more advanced degenerative disc disease at L5-S1. There is grade 1 anterior spondylolisthesis L5-S1 due to L5 spondylolysis bilaterally. There is fairly severe right greater than left L5-S1 neural foramina compromise with contact exiting L5 nerve roots bilaterally. IMPRESSION: 1. There is no evidence of new metastatic disease to the abdomen or pelvis. There is stable hypodense lesion of the spleen. 2. There is again grade 1 anterior spondylolisthesis L5-S1 due to bilateral L5 spondylolysis. There is bilateral L5-S1 neural foramina compromise with impingement of the exiting L5 nerve roots. Electronically signed by: Naresh Ames MD (12/01/2018 1:53 PM) [id number]
--- NOTE | 2018-12-01 16:05 | RAD ---
Radionuclide bone scan, 12/01/2018: HISTORY: Staging breast cancer Following IV injection of 25 mCi of technetium 99m MDP whole-body imaging was performed. Comparison is made to a study from 09/01/2018. The following findings are delineated: 1. Increased activity along the anterior end of a midthoracic rib on the right persists. The recent CT study demonstrates a sclerotic focus along the anterior sixth rib which probably corresponds to the radiographic abnormality. This could be a blastic metastasis or a healing fracture. 2. Increased activity projected over the inferior tip of the right scapula on the posterior view may involve the tip of the scapula or the posterior lateral aspect of the right fourth or fifth rib. This is unchanged. No definite CT correlate is seen. 3. There is an unchanged focus of increased activity Increased activity at both feet and shoulders is likely arthritic in nature. 4. No new osseous abnormality is detected. 5. Normal activity is present in both kidneys and the bladder. IMPRESSION: Stable bone scan. Electronically signed by: Yoradn Al MD (12/01/2018 4:02 PM) [facility]
== END | disposition home or self-care (01) ==
LOC: NM 07:13
PROVIDERS: ATTEND Internal Medicine Hematology & Oncology
DX: C50.911 Malignant neoplasm of unspecified site of right female breast (principal); M43.17 Spondylolisthesis, lumbosacral region; M47.816 Spondylosis without myelopathy or radiculopathy, lumbar region; M51.37 Other intervertebral disc degeneration, lumbosacral region; Z17.0 Estrogen receptor positive status [ER+]
CPT/HCPCS: 71260; 74177; 78306; 96374; A9503; Q9966; Q9967

== ENCOUNTER → 2019-01-11 | Outpatient (CLI) | payer OTHER ==
[2017-12-29 11:28] VITALS: BP 144/80
[~2019-01-11] MED LIST changes: -CONTRAST GIVEN. MC PRN; -IOHEXOL 240 MG/ML 50ML VIAL. PO ONE; -IOHEXOL 300 MG/ML 100ML VIAL. IV ONE
--- NOTE | 2019-01-11 09:21 | CARD ---
MR#: [id number] Date of Study: 01/11/2019 Ordering Physician: ZAN SCOTT, Referring Physician: ZAN SCOTT, Tech: Zaida Frank [facility] APPROVED REPORT EXAM: LIMITED Two-dimensional and M-mode echocardiogram. Other Information Quality : GoodHR: 90bpm Rhythm : NSR INDICATION Breast Cancer 2D DIMENSIONS RVDd2.7 (2.9-3.5cm)IVSd0.7 (0.7-1.1cm) LVDd5.0 (3.9-5.9cm)PWd0.9 (0.7-1.1cm) LVDs3.6 (2.5-4.0cm)FS (%) 27.7 % SV64.1 mlLVEF(%)53.4 (>50%) LEFT VENTRICLE The left ventricle is normal size. There is normal left ventricular wall thickness. The left ventricu lar systolic function is normal and the ejection fraction is within normal range. The Ejection Fracti on is 55-60%. There is normal LV segmental wall motion. GLS -15.9 RIGHT VENTRICLE The right ventricle is normal size. There is normal right ventricular wall thickness. The right ventr icular systolic function is normal. ATRIA The left atrium size is normal. The right atrium size is normal. The interatrial septum is intact wit h no evidence for an atrial septal defect or patent foramen ovale as noted on 2-D or Doppler imaging. GREAT VESSELS The aortic root is normal in size. The ascending aorta is normal in size. The IVC is normal in size a nd collapses >50% with inspiration. PERICARDIAL EFFUSION There is no evidence of significant pericardial effusion. Critical Notification Critical Value: No <Conclusion> The left ventricular systolic function is normal and the ejection fraction is within normal range. Th e Ejection Fraction is 55-60%. There is normal LV segmental wall motion. GLS -15.9 - near normal. No changes compared to prior. Signed by : Lan Cano, Electronically Approved : 01/11/2019 09:21:06
== END | disposition home or self-care (01) ==
LOC: ECHO 08:42
PROVIDERS: ATTEND Internal Medicine Hematology & Oncology
DX: C50.911 Malignant neoplasm of unspecified site of right female breast (principal); Z17.0 Estrogen receptor positive status [ER+]
CPT/HCPCS: 93308